=== PATIENT | male | born 1980 | race African-American/Black ===

== ENCOUNTER 2021-06-10 07:49 | Emergency (ER) | payer MEDICAID ==
[~2021-06-10] VITALS: Ht 177.8 cm; Wt 75.0 kg
[2021-06-10 07:52] VITALS: BP 112/75
== END 2021-06-10 08:45 | disposition left against medical advice (07) ==
LOC: EMS 08:01
DX: R22.0 Localized swelling, mass and lump, head (principal); Z53.21 Procedure and treatment not carried out due to patient leaving prior to being seen by health care provider